=== PATIENT | male | born 1965 | race Two or more races ===

== ENCOUNTER 2024-01-22 10:31 | Emergency (ER) | payer MEDICAID, OTHER ==
[~2024-01-22] VITALS: Ht 180.3 cm; Wt 113.6 kg
[2024-01-22 12:37] VITALS: BP 167/111; PULSE 60; RESP 16; TEMP 97; O2SAT 100
[2024-01-22] MEDS ORDERED: CYCL-837 PO (14:22)
[2024-01-22] MEDS ORDERED: IBUP-1456 PO (14:22)
== END 2024-01-22 14:28 | disposition home or self-care (01) ==
LOC: ER 10:31 → EDBD 10:31 → ER 14:27
DX: S80.01XA Contusion of right knee, initial encounter (principal); M54.50 Low back pain, unspecified; M54.6 Pain in thoracic spine; Y04.2XXA Assault by strike against or bumped into by another person, initial encounter; Y93.89 Activity, other specified; Y92.89 Other specified places as the place of occurrence of the external cause; Y99.8 Other external cause status
CPT/HCPCS: 73562

== ENCOUNTER 2024-07-04 10:22 | Emergency (ER) | payer MEDICAID, OTHER ==
[~2024-07-04] VITALS: Ht 154.9 cm; Wt 110.4 kg
[~2024-07-04 10:22] MED LIST: CYCL-837 PO; IBUP-1456 PO
[2024-07-04 10:44] VITALS: TEMP 99.1
[2024-07-04] MEDS: SODIUM CHLORIDE 0.9% 1,000 ML IV ONE (11:00)
[2024-07-04] MEDS: METOCLOPRAMIDE HCL 5MG/ml INJ 2ml VIAL IV ONE (11:01)
[2024-07-04] MEDS: FAMOTIDINE (10MG/ML) 2ML VL IV ONE (11:01)
[2024-07-04 11:07] LABS: Basophils # (auto) 0 10 ^3/uL (0-0.2); Basophils % (auto) 0.2 % (0.0-2.0); Eosinophils # (auto) 0 10 ^3/uL (0-0.8); Eosinophils % (auto) 0.5 % (0.0-7.0); Hematocrit 46.4 % (41.0-53.0); Hemoglobin 15.9 g/dL (13.5-17.5); Lymphocytes # (auto) 0.5 10 ^3/uL (0.4-5.4); Lymphocytes % (auto) 9.2 % (10.0-50.0); Mean Corpuscular Hgb Conc. 34.1 g/dL (32.0-36.0); Mean Corpuscular Volume 93.8 fL (80.0-100.0); Monocytes # (auto) 0.4 10 ^3/uL (0-1.3); Monocytes % (auto) 7.5 % (0.0-12.0); Neutrophils # (auto) 4.9 10 ^3/uL (1.6-8.6); Neutrophils % (auto) 82.6 % (37.0-80.0); Platelet Count (auto) 126 10^3/uL (140-450); Red Blood Cells 4.95 10^6/uL (4.5-5.90); White Blood Cell 5.9 10^3/uL (4.4-10.8)
[2024-07-04 11:09] VITALS: PULSE 84; RESP 14; O2SAT 98
[2024-07-04 11:29] LABS: Alanine Aminotransferase 47 U/L (7-40); Albumin 4.4 g/dL (3.2-4.8); Alkaline Phosphatase 39 U/L (46-116); Anion Gap 6 (5-15); Aspartate Aminotransferase 29 U/L (13-40); Bilirubin, Total 0.9 mg/dL (0.2-1.0); Blood Urea Nitrogen 7 mg/dL (9-23); Calcium 8.9 mg/dL (8.7-10.4); Carbon Dioxide 23 mmol/L (20-30); Chloride 105 mmol/L (98-107); Glucose 148 mg/dL (74-106); Potassium 4.1 mmol/L (3.5-5.1); Sodium 134 mmol/L (136-145); Total Protein 7.2 g/dL (5.7-8.2)
[2024-07-04 11:53] VITALS: BP 176/117; PULSE 76; RESP 17; O2SAT 99
[2024-07-04] MEDS ORDERED: ZOFR4T PO (11:57)
== END 2024-07-04 12:06 | disposition home or self-care (01) ==
LOC: ER 10:22
DX: K52.9 Noninfective gastroenteritis and colitis, unspecified (principal); I10 Essential (primary) hypertension
CPT/HCPCS: 36415; 80053; 85025; 93005; 96361; 96374; 96375; 99284; J2765; J3490; J7030